=== PATIENT | male | born 1935 | race Two or more races ===

== ENCOUNTER 2017-01-27 08:05 | Emergency (ER) | payer MEDICARE, MEDICAID ==
[~2017-01-27] VITALS: Ht 170.2 cm; Wt 60.8 kg
[~2017-01-27 08:05] MED LIST: ASPI81TA31 PO; CALC-834 PO; ESCI10TA PO; HYDR-3974 PO; HYPR15DR9 OP; TAMS-3 PO
--- NOTE | 2017-01-27 08:18 | NUR ---
pt is in room #2a. dr cantu evaluated the pt.
--- NOTE | 2017-01-27 09:15 | NUR ---
Patient discharged to home in stable conditon with family. Written and verbal after care instructions given. Patient and family verbalizes understanding of instructions. Stressed follow up with pmd or return to ER for worsening s/s.
== END 2017-01-27 09:16 | disposition home or self-care (01) ==
LOC: ER 08:05
DX: S06.0X0A Concussion without loss of consciousness, initial encounter (principal); R51 Headache; Z79.82 Long term (current) use of aspirin; W18.30XA Fall on same level, unspecified, initial encounter; Y93.89 Activity, other specified; Y99.8 Other external cause status; Y92.89 Other specified places as the place of occurrence of the external cause
CPT/HCPCS: 70450; A4663